=== PATIENT | male | born 1950 | race Caucasian/White ===

== ENCOUNTER 2019-01-08 11:43 | Emergency (ER) | payer MEDICARE ==
[~2019-01-08] VITALS: Ht 172.7 cm; Wt 72.6 kg
--- OUTSIDE RECORDS SUMMARY | 2019-01-08 11:45 | XMS REPORT | Continuity of Care Document ---
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 BACK PAIN, LUMBOSACRAL, BALANCE . Active 09/15/[address] [facility] Diabetes Resolved Problem 09/06/2018 [facility] Hypertension Resolved Problem 09/06/2018 [facility] Renal stone Resolved Problem 09/06/2018 [facility] Other microscopic hematuria 01/03/2019 [id number] Calculus of kidney 01/03/2019 [id number] Atherosclerotic heart disease of [place] coronary artery without angina pectoris 01/03/2019 [id number] Constipation, unspecified 01/03/2019 [id number] Diabetes mellitus (disorder) Resolved Problem 01/03/2019 [id number] Hypertensive disorder, systemic arterial (disorder) Resolved Problem 01/03/2019 [id number] Kidney stone (disorder) Resolved Problem 01/03/2019 [id number] CALCULUS OF KIDNEY Active [facility] Medications Medication Details Route Status Patient Instructions Ordering Provider Order Date Source tramadol hydrochloride 50 MG Oral Tablet 50 mg=1 tab, PO, Q12H, # 30 tab, 0 Refill(s), called to pharmacy Active 10/31/2017 [facility] tizanidine 4 mg oral tablet 4 mg=1 tab, PO, Q8H, PRN for muscle spasms, # 90 tab, 0 Refill(s), Pharmacy: [id number] Active 10/31/2017 [facility] Allergies, Adverse Reactions, Alerts Substance Category Reaction Severity Reaction type Status Date Reported Comments Source No Known Medication Allergies Assertion Drug allergy [id number] Immunizations No Data Provided for This Section Results No Data Provided for This Section Pathology Reports No Data Provided for This Section Diagnostic Reports Report Value Date Source Abdomen AP DX Abdomen AP DX 09/04/2018 8:33 CDT Ordering Physician: Christiano Goldberg MD CLINICAL INDICATION: - I10 Essential (primary) hypertension, E11.9 Type 2 diabetes mellitus without complications, N20.0 Calculus of kidney; COMPARISON: 07/31/2018 TECHNIQUE: Routine supine AP view of the abdomen was obtained. FINDINGS: Interval removal of the left double-J ureteral stent is noted. No stone is noted along the course of the ureter or within the region of the bladder. Couple of nonobstructive less than 5 mm left renal calculi are stable. Air and stool are visualized throughout the colon and rectum. No dilated loops of small bowel with air-fluid levels are present. No gross free air is present. No unexpected radiopaque foreign body is present. Bones are normal. IMPRESSION: Couple of stable nonobstructive left renal calculi, less than 5 mm. No ureteral or bladder stones identified. : [id number] 09/04/2018 [facility] Abdomen AP DX KUB: A left ureteral stent is seen in good position. The 1.8 cm calculus in the left renal pelvis seen on CT of 06/15/2018 is no longer visualized. There is an 8mm group of punctate calcifications in the lower pole of the left kidney consistent with stone fragments. There is a Steinstrasse of small stone fragments in the proximal left ureter adjacent to the stent. The abdominal gas pattern is normal. There are no significant osseous abnormalities. [id number] 07/31/2018 [facility] Abdomen/Pelvis wo IV contrast CT Patient Name: RAMON ZAMORA : 1950; Age: 68 years y/o Male MR: [id number] * I. COMPUTED TOMOGRAPHY SCAN OF THE ABDOMEN without contrast. * II. COMPUTED TOMOGRAPHY SCAN OF THE PELVIS without contrast. HISTORY: - R10.84 Generalized abdominal pain, left renal colic x few weeks, history of urinary tract calculi. COMPARISON: None * TECHNIQUE: I. COMPUTED TOMOGRAPHY SCAN OF THE ABDOMEN without contrast: Helical CT images were obtained on a multidetector computed tomography from the domes the diaphragms to the iliac crests. Neither oral or intravenous contrast was administered. II. COMPUTED TOMOGRAPHY SCAN OF THE PELVIS without contrast: Helical CT images were obtained on a multidetector computed tomography from the iliac crests to the pubic symphysis. Neither oral or intravenous contrast was administered. Coronal and sagittal reconstructions were obtained. CT imaging performed at this location utilizes radiation dose optimization techniques which include one or more of the following: -Automated exposure control. -Adjustment of the mA and/or kV according to patient size. -Use of iterative reconstruction technique. CT radiation dose DLP: 566 mGy-cm FINDINGS: Left kidney: There is a relatively large (18 x 16 x 7 mm) calculus within the left renal pelvis. This measures approximately 1000 Hounsfield units in density. 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 There is a 6 mm left upper pole renal calculus. There is a 3 mm left lower pole renal calculus. There are 2 or 3 tiny other calculi. There is no left hydronephrosis. The left kidney is normal in size. No focal lesion is seen involving the left kidney on this limited noncontrast study. Right kidney: No right-sided urinary tract calculi are seen. There is no hydronephrosis on the right. No focal lesions are seen involving the right kidney on this limited noncontrast study. The right kidney is normal in size. There is no evidence of an acute intra-abdominal process. There is no free intraperitoneal gas, intra-abdominal abscess, ascites, or other fluid collection. The liver, spleen, pancreas, and adrenal glands are normal in appearance. Evaluation of the solid organs is limited due to lack of intravenous contrast. There is mild constipation. Otherwise, the gastrointestinal structures are unremarkable. There is no evidence of obstruction or ileus. The appendix is visualized. There is no evidence of appendicitis. Evaluation of the gastrointestinal structures is limited due to lack of oral contrast. The gallbladder is visualized and grossly normal in appearance. There is no evidence of biliary ductal dilitation No mass or adenopathy is seen within the abdomen or pelvis. There is no ascites or other fluid collection. The abdominal aorta is normal in caliber. There are moderate atherosclerotic calcifications. The visualized lung bases are clear. There are no pleural effusions. The heart is normal in size. Moderate right coronary artery calcifications are noted. There is no pericardial effusion. There is degenerative facet disease on the left at L5-S1. It is noted the patient previously had CT and magnetic resonance imaging studies of the lumbar spine in 2018. Please refer to those reports. Otherwise, the osseous structures are unremarkable. No blastic or destructive lesions are seen. IMPRESSION: 1. Multiple left renal calculi as described above, the largest in the left renal pelvis measuring 18 x 16 x 7 mm. There is no hydronephrosis. 2. No right-sided urinary tract calculi. 3. Atherosclerosis including right coronary artery calcifications. 4. Mild constipation. SL: [id number] 06/15/[address] [facility] Spine lumbar wo contrast CT CT LUMBAR SPINE WITHOUT CONTRAST WITH SAGITTAL AND CORONAL REFORMATTED IMAGES HISTORY: Lumbar spondylosis; lumbar radiculopathy; 67-year-old male reports - LBP radiating to left leg x years, hx of surgery for sciatic nerve on SI area on right side in 2014; CT DLP 388.6 COMPARISON: MRI lumbar spine dated 09/26/2017 FINDINGS: There are 6 lumbar type vertebral bodies. Unchanged very mild chronic superior endplate compression deformity of the L1 vertebral body. No other fracture is seen. Remaining vertebral body heights are preserved. No endplate erosion or aggressive osseous lesion. No paraspinal soft tissue mass or fluid collection. Mild disc degeneration L4/L5 and L5/L6. Mild bilateral degenerative facet arthrosis at L4/L5 and L5/S1. Changes of prior posterior surgical decompression L5/L6. Mild/moderate aortoiliac atherosclerotic calcifications. No aneurysm of the visualized aorta. Relatively large calyceal calculus of the left kidney measures 2.1 x 0.8 x 1.5 cm. No left hydronephrosis. DISC SPACES: T12/L1: No canal stenosis or neural foraminal narrowing. L1/L2: No canal stenosis or neural foraminal narrowing. L2/L3: No canal stenosis or neural foraminal narrowing. L3/L4: No canal stenosis or neural foraminal narrowing. L4/L5: Mild diffuse disc bulge. Mild bilateral hypertrophic facet arthrosis. No canal stenosis. Mild bilateral neural foraminal narrowing. L5/L6: Changes of prior posterior surgical decompression. Mild broad-based posterior and bilateral foraminal disc protrusion with minimal endplate spurring. Mild bilateral hypertrophic facet arthrosis. No canal stenosis. Moderate bilateral neural foraminal narrowing. L6/S1: No canal stenosis or neural foraminal narrowing. IMPRESSION: 1. 6 lumbar type vertebra. 2. Mild degenerative disc disease and facet arthrosis in the lower lumbar spine. 3. Changes of prior posterior surgical decompression at L5/L6. 4. No lumbar canal stenosis. 5. Moderate bilateral neural foraminal narrowing L5/L6 and mild bilateral neural foraminal narrowing at L4/L5. 6. Relatively large 2.1 x 0.8 x 1.5 cm left renal calyceal calculus and mild/moderate aortoiliac atherosclerotic calcification. SL: [id number] 10/18/2017 [facility] lumbar wo contrast MRI EXAM: MRI LUMBAR SPINE WITHOUT CONTRAST DATE: 09/26/2017 10:08 AM CDT . ORDERING PHYSICIAN: Lavinia White MD CLINICAL INDICATION: M54.5 Low back pain - M54.5 Low back pain; TECHNIQUE: Multiplanar, multisequence MRI lumbar spine without IV contrast COMPARISON: Unavailable FINDINGS: For the purposes of enumeration, the lowest well formed intervertebral disc was counted as L5-S1 on this exam. INTRASPINAL CONTENTS/CONUS: The conus terminates at L1-L2. No definite dural based lesion. VERTEBRAE: The vertebrae are normal in height and alignment. No focal suspicious bone marrow signal abnormality. PARASPINAL SOFT TISSUES: No edema or definite masses. No aortic aneurysm. DISC SPACES, SPINAL CANAL, AND NEURAL FORAMINA: T12-L1. Intervertebral disc height and signal are maintained. Posterior elements are normal. There is no stenosis. L1-L2. Intervertebral disc height and signal are maintained. Posterior elements are normal. There is no stenosis. L2-L3. Intervertebral disc height and signal are maintained. Posterior elements are normal. There is no stenosis. L3-L4. Loss of disc height with diffuse disc bulge. There is mild bilateral facet hypertrophy. Central canal measures 12 mm. Lateral recesses are narrowed with disc and facets contacting the descending L4 nerve roots. Foraminal disc bulge mildly narrows the neural foramina with no contact of the exiting L3 nerve roots. L4-L5. Dehydrated disc with small diffuse disc bulge. There is left greater than right facet hypertrophy. Patient status post right laminectomy. Central canal measures 17 mm lateral recesses are patent. There is moderate narrowing of the neural foramina with disc and facets contacting both exiting L4 nerve roots, left greater than right. L5-S1. Intervertebral disc height and signal are maintained. Posterior elements are normal. There is no stenosis. IMPRESSION: 1. No central canal stenosis 2. Moderate L4-L5 neural foramen narrowing, left greater than right 3. Satisfactory L4-L5 posterior decompression 09/26/2017 S[facility]IE Ramirez Consultation Notes No Data Provided for This Section Discharge Summaries No Data Provided for This Section History and Physicals No Data Provided for This Section Vital Signs Vital Sign Value Date Comments Source Height 172.72 cm 09/04/2018 [facility] Weight 74.091 09/04/2018 [facility] BMI Calculated 24.84 09/04/2018 [facility] BMI Calculated 24.84 11/02/2017 [facility] Weight 74.091 11/02/2017 [facility] Height 172.72 cm 11/02/2017 [facility] Heart Rate 71 11/02/2017 [facility] Systolic (mm Hg) 95 [facility]/02[facility] Diastolic (mm Hg) 58 11/02/2017 [facility] Weight 73.807 10/11/2017 [facility] BMI Calculated 24.74 10/11/2017 [facility] Height 172.72 cm 10/11/2017 [facility] Encounters Location Location Details Encounter Type Encounter Number Reason For Visit Attending Provider ADM Date DC Date Status Source [facility] Out[facility] - [facility] [id number] Lavinia White 09/26/2017 09/27/2017 SADIE Ramirez [facility] Neurosurgery [facility] Phone Message [id number] 10/05/2017 10/07/2017 [facility] Outpatient [id number] GIOVANNY YOUNGH 10/11/2017 Active [facility] [id number] Giovanny Marilou 10/11/2017 10/12/2017 [facility] Phone Message [id number] 10/18/2017 10/20/2017 [facility] Phone Message [id number] 10/18/2017 10/20/2017 [facility] Outpatient [id number] FLORENTIN AYALA 10/31/2017 [facility] Outpatient [id number] Florentin Ayala 10/31/2017 11/01/2017 [facility] Phone Message [id number] 11/10/2017 11/12/2017 [facility] Outpatient [id number] FLORENTIN AYALA 11/17/[address] [facility] Ambulatory Pre-Reg [id number] Florentin Ayala 11/17/2017 11/17/2017 [facility] Phone Message [id number] 12/19/2017 12/21/2017 [facility] Outpatient [id number] [facility] 12/20/[address] [facility] Ambulatory Pre-Reg [id number] Jasmyne Olayinkatyree 12/20/2017 12/20/2017 [facility] Outpatient [facility] Services [id number] [facility] 06/15/2018 06/16/2018 [id number] Outpatient [id number] [facility] 07/12/[address] [facility] Outpatient [id number] NURSE VISIT 07/17/[address] [facility] Outpatient [id number] NURSE VISIT 07/17/[address] [id number] [facility]31[facility]2018 08/01/2018 [facility] Outpatient [id number] [facility] Goldberg 08/07/[address] [facility] Outpatient [id number] -[place] 08/08/[address] [facility] Outpatient [id number] -[place] 08/28/[address] [id number] [facility]2018 [facility] [id number] [facility] 09/04/2018 09/05/2018 [facility] [place] Outpatient [id number] Christiano Goldberg 09/04/2018 09/05/2018 [facility] Outpatient [id number] -[place] 02/26/[address] [facility] Outpatient [id number] Christiano Goldberg 03/05/[address] [facility] Procedures Procedure Code Date Perfomer Comments Source Eye operation [id number] [facility],[id number],[facility] Knee joint operation [id number] [facility],[id number],[facility] Neck procedure [id number] [facility],[id number],[facility] Spinal operation [id number] [facility],[id number],[facility] Assessment and Plan No Data Provided for This Section Plan of Care No Data Provided for This Section Social History Social History Date Source Social History TypeResponse Smoking Status Never smoker; Exposure to Tobacco Smoke None; Cigarette Smoking Last 365 Days No; Reg Smoking Cessation Counseling No entered on: 09/04/18 09/04/2018 [facility] Social History TypeResponse Smoking Status Never smoker; Exposure to Tobacco Smoke None; Cigarette Smoking Last 365 Days No; Reg Smoking Cessation Counseling No entered on: 09/04/18 09/04/2018 [facility] Social History TypeResponse Smoking Status Never smoker; Exposure to Tobacco Smoke None; Cigarette Smoking Last 365 Days No; Reg Smoking Cessation Counseling No entered on: 09/04/18 09/04/2018 [id number] Social History TypeResponse Smoking Status Never smoker; Exposure to Tobacco Smoke None; Cigarette Smoking Last 365 Days No; Reg Smoking Cessation Counseling No entered on: 11/02/17 11/02/2017 [facility] No data available for this section 09/27/2017 SADIE Ramirez Family History No Data Provided for This Section Advance Directives No Data Provided for This Section Functional Status No Data Provided for This Section
--- OUTSIDE RECORDS SUMMARY | 2019-01-08 11:45 | XMS REPORT | Clinical Summary ---
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 Active glipiZIDE (GLUCOTROL) 10 Take 10 mg by 0 MG tablet mouth 2 (two) times a day before meals. Active hydroCHLOROthiazide Take 25 mg by 0 (HYDRODIURIL) 25 MG mouth daily. tablet Active metFORMIN (GLUCOPHAGE) Take 1,000 mg 0 1,000 mg tablet by mouth 2 (two) times a day with meals. Active omeprazole (PriLOSEC) 20 Take 20 mg by 0 MG capsule mouth 2 (two) times a day. Active simvastatin (ZOCOR) 40 MG Take 40 mg by 0 tablet mouth nightly. Active terazosin (HYTRIN) 5 MG Take 5 mg by 0 capsule mouth nightly. Active aspirin (ECOTRIN) 81 MG Take by 0 enteric coated tablet mouth. Active lisinopril Take 5 mg by 0 (PRINIVIL,ZESTRIL) 5 mg mouth daily. tablet Active diclofenac (VOLTAREN) 1 % Apply 1 Tube 0 gel topically 4 9 (four) times a day. 1-2 times weeks for 6-8 weeks // Patellar tendinitis and LBP Active sucralfate (CARAFATE) 1 TK 1 T BID 0 gram tablet 9 01/17/2019 Active cyclobenzaprine Take 1 tablet 90 tablet 0 (FLEXERIL) 5 mg tablet (5 mg total) 9 by mouth 3 (three) times a day as needed for muscle spasms for up to 30 days. 12/29/2019 Active acetaminophen-codeine Take 1 tablet 50 tablet 0 (TYLENOL WITH CODEINE #3) by mouth 9 300-30 mg per tablet every 4 (four) hours as needed for moderate pain. 01/27/2018 traMADol (ULTRAM) 50 mg Take 1 tablet 60 tablet 0 tablet (50 mg total) 8 by mouth every 6 (six) hours as needed for moderate pain for up to 30 days. 02/02/2018 cyclobenzaprine Take 1 tablet 30 tablet 0 (FLEXERIL) 5 mg tablet (5 mg total) 8 by mouth 2 (two) times a day as needed for muscle spasms for up to 30 days. 02/26/2018 methylPREDNISolone Take 1 tablet 21 tablet 0 (MEDROL DOSEPAK) 4 mg (4 mg total) 8 tablet by mouth See Admin Instructions for 5 days. Use as directed by package instructions 08/10/2018 ibuprofen (ADVIL,MOTRIN) Take 1 tablet 90 tablet 0 800 MG tablet (800 mg 9 total) by mouth 3 (three) times a day as needed for mild pain for up to 30 days. 08/01/2018 HYDROcodone-acetaminophen Take 1 tablet 10 tablet 0 (NORCO) 10-325 mg per by mouth 9 tablet every 6 (six) hours as needed for moderate pain for up to 2 days. Max Daily Amount: 4 tablets 10/26/2018 ibuprofen (ADVIL,MOTRIN) Take 1 tablet 90 tablet 0 800 MG tablet (800 mg 9 total) by mouth every 8 (eight) hours as needed for moderate pain for up to 30 days. 12/25/2018 traMADol (ULTRAM) 50 mg Take 1 tablet 30 tablet 0 tablet (50 mg total) 9 by mouth every 8 (eight) hours as needed for moderate pain or severe pain for up to 10 days. Status Hospital, Clinic, or Ordered Dose Route Frequency Start End Date Other Facility Date Administered Medication Discontinued methylPREDNISolone 40 mg IM once 01/04/20 acetate (DEPO-MEDROL) 18 9 injection 40 mgIndications: Biceps tendinitis of right upper extremity, Calcific tendinitis of right shoulder Discontinued bupivacaine (MARCAINE) 5 mg inj once 01/04/20 0.5 % (5 mg/mL) injection 18 9 5 mgIndications: Biceps tendinitis of right upper extremity, Calcific tendinitis of right shoulder Active Problems Problem Noted Date Dizziness 12/18/2018 Muscle tightness 12/18/2018 Bilateral sciatica 10/04/2018 Patellar tendinitis of both knees 07/11/2018 Biceps tendinitis of right upper extremity 12/30/2017 Acute pain of right shoulder 12/30/2017 Calcific tendinitis of right shoulder 12/30/2017 Generalized weakness 11/30/2017 Low back pain 11/30/2017 TIA (transient ischemic attack) 11/30/2017 Encounters Care Team Description Date Type Specialty Jazmyne Sheehan MA 12/29/2018 Telephone Sports Medicine Shine Mabry MD Contusion of right knee, initial encounter (Primary Dx); Hip sprain, right, initial encounter 12/28/2018 Office Visit Sports Medicine Shine Mabry MD Contusion of right knee, initial encounter (Primary Dx); Hip sprain, right, initial encounter; Strain of lumbar region, initial encounter; Sprain of sacroiliac joint, initial encounter 12/18/2018 Office Visit Sports Medicine Subha Lundberg MD Dizziness (Primary Dx); Muscle tightness; Generalized weakness 12/18/2018 Office Visit Neurology Fernando Singh MA 12/18/2018 Telephone Orthopedic Surgery Fernando Singh MA 12/15/2018 Telephone Orthopedic Surgery Fernando Singh MA 12/15/2018 Orders Only Orthopedic Surgery Barrett Umaña Jr., MD Bilateral sciatica (Primary Dx); Patellar tendinitis of both knees 09/26/2018 Office Visit Orthopedic Surgery Barrett Umaña Jr., MD 08/22/2018 Telephone Orthopedic Surgery Barrett Umaña Jr., MD Patellar tendinitis of both knees (Primary Dx) 08/15/2018 Office Visit Orthopedic Surgery Mayank Badillo DO Acute left flank pain (Primary Dx) 07/30/2018 Emergency Emergency Medicine 07/30/2018 Travel Barrett Umaña Jr., MD Patellar tendinitis of both knees (Primary Dx); Low back pain, unspecified back pain laterality, unspecified chronicity, with sciatica presence unspecified 07/11/2018 Office Visit Orthopedic Surgery Fernando Singh MA Pain in both knees, unspecified chronicity (Primary Dx) 07/07/2018 Orders Only Sports Medicine Barrett Umaña Jr., MD Calcific tendinitis of right shoulder (Primary Dx); Biceps tendinitis of right upper extremity 02/21/2018 Office Visit Orthopedic Surgery Barrett Umaña Jr., MD Calcific tendinitis of right shoulder (Primary Dx); Right shoulder pain, unspecified chronicity 02/13/2018 Transcribe Physical Therapy Orders after 01/07/2018 Family History Medical History Relation Name Comments Stroke Mother Relation Name Status Comments Father Mother Social History Date Tobacco Use Types Packs/Day Years Used Never Smoker Smokeless Tobacco: Never Used Drinks/Week oz/Week Comments Alcohol Use No Sex Assigned at Date Recorded Not on file Industry Job Start Date Occupation Not on file Not on file Not on file Travel End Travel History Travel Start No recent travel history available. Last Filed Vital Signs Reading Time Taken Comments Vital Sign 161/79 12/28/2018 3:05 PM CDT Blood Pressure 91 12/28/2018 3:05 PM CDT Pulse 37.1 C (98.7 F) 07/30/2018 12:52 PM CDT Temperature 16 07/30/2018 4:30 PM CDT Respiratory Rate 96% 07/30/2018 5:00 PM CDT Oxygen Saturation - - Inhaled Oxygen Concentration 72.6 kg (160 lb) 12/28/2018 3:05 PM CDT Weight 172.7 cm (5' 8") 12/28/2018 3:05 PM CDT Height 24.33 12/28/2018 3:05 PM CDT Body Mass Index Plan of Treatment Care Team Description Date Type Specialty Shine Mabry MD [address] [address] [phone] Leonela Pasrtana, PT 01/09/2019 Office Visit Physical Therapy Shine Mabry MD [address] [address] [phone] Samantha Awan, PT 01/11/2019 Office Visit Physical Therapy Shine Mabry MD [address] [address] [phone] Ashley Alvarez 01/16/2019 Office Visit Physical Therapy Shine Mabry MD [address] [address] [phone] Samantha Awan, PT 01/18/2019 Office Visit Physical Therapy Shine Mabry MD [address] [address] [phone] Ashley Alvarez 01/23/2019 Office Visit Physical Therapy Shine Mabry MD [address] [address] [phone] Ashley Alvarez 01/25/2019 Office Visit Physical Therapy Shine Mabry MD [address] [address] [phone] Ashley Alvarez 01/30/2019 Office Visit Physical Therapy Shine Mabry MD [address] [address] [phone] Samantha Awan, PT 02/01/2019 Office Visit Physical Therapy Shine Mabry MD [address] [address] [phone] Ashley Alvarez 02/06/2019 Office Visit Physical Therapy Shine Mabry MD [address] [address] [phone] Samantha Awan, PT 02/08/2019 Office Visit Physical Therapy Shine Mabry MD [address] [address] [phone] 02/08/2019 Office Visit Sports Medicine Shine Mabry MD [address] [address] [phone] Ashley Alvarez 02/13/2019 Office Visit Physical Therapy Shine Mabry MD [address] [address] [phone] Ashley Alvarez 02/15/2019 Office Visit Physical Therapy Shine Mabry MD [address] [address] [phone] Samantha Awan, PT 02/20/2019 Office Visit Physical Therapy Shine Mabry MD [address] [address] [phone] Ashley Alvarez 02/22/2019 Office Visit Physical Therapy Health Maintenance Due Date Last Done Comments COLONOSCOPY SCREENING 1998 SHINGLES VACCINES (#1) 1998 65+ PNEUMOCOCCAL VACCINE 2013 (1 of 2 - PCV13) INFLUENZA VACCINE 12/07/2018 Procedures Comments Procedure Name Priority Date/Time Associated Diagnosis XR HIP 2-3 VIEWS RIGHT Routine 12/18/2018 Sprain of right knee, 2:08 PM CDT unspecified ligament, initial encounter XR KNEE 4+ VW RIGHT Routine 12/18/2018 Sprain of right knee, 2:08 PM CDT unspecified ligament, initial encounter [place] INJECT TRIGGER POINT, Routine 09/26/2018 Bilateral sciatica 1 OR 2 9:30 AM CDT Patellar tendinitis of both knees PARTIAL THROMBOPLASTIN STAT 07/30/2018 TIME (PTT) 4:05 PM CDT PROTHROMBIN TIME WITH INR STAT 07/30/2018 4:[address] ABDOMEN PELVIS WO STAT 07/30/2018 CONTRAST 4:00 PM CDT GRAM STAIN STAT 07/30/2018 3:27 PM CDT URINE CULTURE STAT 07/30/2018 3:27 PM CDT URINALYSIS SCREEN AND STAT 07/30/2018 MICROSCOPY, WITH REFLEX 2:39 PM CDT TO CULTURE ESTIMATED GFR STAT 07/30/2018 2:35 PM CDT COMPREHENSIVE METABOLIC STAT 07/30/2018 PANEL 2:35 PM CDT XR KNEE 3 VW BILATERAL Routine 07/11/2018 Pain in both knees, 9:41 AM REAR ADMIRAL unspecified chronicity after 01/07/2018 Results * XR Hip 2-3 View Right (12/18/2018 2:08 PM CDT) Specimen Narrative Performed At [facility] No obvious fractures or dislocations Performing Organization Address [facility] Phone Number [facility] [address] [place] [address] * XR Knee 4+ Vw Right (12/18/2018 2:08 PM CDT) Specimen Narrative Performed At [facility] Distal femoral and proximal tibial screws intact with no evidence of loosening or simon-prosthetic fractures.Moderate medial and patellofemoral compartment joint space narrowing.No obvious fractures or dislocations Performing Organization Address [facility] Phone Number [facility] [address] [place] [address] * 1 or 2 Trigger Point Injection (09/26/2018 9:30 AM CDT) Narrative Performed At Barrett Umaña Jr., MD 10/04/20187:56 PM 1 or 2 Trigger Point Injection Date/Time: 10/04/2018 7:51 PM Performed by: Barrett Umaña Jr., MD Authorized by: Barrett Umaña Jr., MD Consent: Consent obtained:Verbal Consent given by:Patient Risks discussed:Allergic reaction and bleeding Alternatives discussed:No treatment Indications: Indications:Pain relief Location: Therapeutic Trigger Point Injection:Single/multiple trigger point(s): 1-2 muscle groups Location: gluteal Gluteal location injected:R gluteal Right side: Right Gluteal Medications administered: 80 mg methylPREDNISolone acetate 40 mg/mL Pre-procedure details: Neurovascular status: intact Skin preparation:2% chlorhexidine Procedure details: Topical anesthetic:EMLA cream Syringe type:Controlled syringe Post-procedure details: Patient tolerance of procedure:Tolerated well, no immediate complications * Partial thromboplastin time, activated (07/30/2018 4:05 PM CDT) Pathologist [facility] PTT 35.8 23.0 - 36.0 sec [facility] Comment: [facility] PTT therapeutic range for [facility] unfractionated heparin is 61.0-112.0 seconds which corresponds to Anti-Xa 0.3-0.7 U/ml. Specimen Blood Performing Organization Address [facility] Phone Number [address] AND [address] * Prothrombin time with INR (07/30/2018 4:05 PM CDT) Pathologist [facility] Prothrombin 12.8 11.5 - 14.5 sec [facility] INR 1.0 [facility] Comment: [facility] The International Normalized [facility] Ratio (INR) is a therapeutic monitoring tool for patients who are stable on oral anticoagulant therapy. An INR of 2.0-3.0 is suggested for deep vein thrombosis/pulmonary embolism. Specimen Blood Performing Organization Address [facility] Phone Number [address] * CT Abdomen Pelvis Wo Contrast (07/30/2018 4:00 PM CDT) Specimen Narrative Performed At EXAMINATION:CT ABDOMEN PELVIS WO CONTRAST [facility] CLINICAL HISTORY:left flank pain post recent ureteral stent placement at [facility] TECHNIQUE:Multiple axial images of the abdomen and pelvis were obtained without intravenous administration of iodinated contrast. Sagittal and coronal computerized reformatted images were also obtained. The lack of intravenous contrast reduces the sensitivity of detecting solid organ disease. CT imaging was performed with iterative reconstruction techniques and/or automated exposure control to reduce radiation dose. COMPARISON:None. IMPRESSION: Abdomen: 1. No parenchymal abnormality is noted in the lung bases. 2.Liver and the spleen are normal in appearance. 3.Pancreas and adrenal glands are normal in appearance. 4.The right kidney is normal in appearance. Small calculi are noted involving the left kidney and there is a left-sided internal ureteral stent present. Pelvis: 1. Minimal presacral infiltration is present. There is no evidence pelvic mass, or fluid collection. 2.No bowel distention is appreciated. No bony abnormality is appreciated. [facility]-[id number] Procedure Note Interface, Radiology Results Incoming - 07/30/2018 4:11 PM CDT EXAMINATION: CT ABDOMEN PELVIS WO CONTRAST CLINICAL HISTORY: left flank pain post recent ureteral stent placement at [facility] TECHNIQUE: Multiple axial images of the abdomen and pelvis were obtained without intravenous administration of iodinated contrast. Sagittal and coronal computerized reformatted images were also obtained. The lack of intravenous contrast reduces the sensitivity of detecting solid organ disease. CT imaging was performed with iterative reconstruction techniques and/or automated exposure control to reduce radiation dose. COMPARISON: None. IMPRESSION: Abdomen: 1. No parenchymal abnormality is noted in the lung bases. 2. Liver and the spleen are normal in appearance. 3. Pancreas and adrenal glands are normal in appearance. 4. The right kidney is normal in appearance. Small calculi are noted involving the left kidney and there is a left-sided internal ureteral stent present. Pelvis: 1. Minimal presacral infiltration is present. There is no evidence pelvic mass, or fluid collection. 2. No bowel distention is appreciated. No bony abnormality is appreciated. [facility]-[id number] Performing Organization Address City/[facility]/Zipcode Phone Number [facility] [address] [place] [address] * Gram stain (07/30/2018 3:27 PM CDT) Gram stain Rare WBC's [facility] result No organisms seen [facility]I Comment: HOSPITAL Specimen Information Specimen Source: Urine Specimen Site: Clean catch Specimen Urine Performing Organization Address City/[facility]/Zipcode Phone Number [facility] DEPARTMENT OF [address] [place] [address] PATHOLOGY AND GENOMIC MEDICINE [facility] [address] [place] [address] HOSPITAL * Urine culture (07/30/2018 3:27 PM CDT) Urine culture growth after 24 hours [facility] isolate Comment: [facility] Specimen Information HOSPITAL Specimen Source: Urine Specimen Site: Clean catch Specimen Urine Performing Organization Address City/[facility]/Zipcode Phone Number [facility] DEPARTMENT OF [address] [place] [address] PATHOLOGY AND GENOMIC MEDICINE [facility] [address] [place], [place] [id number] [place] [address] * Urinalysis screen and microscopy, with reflex to culture (07/30/2018 2:39 PM CDT) Specimen site Clean catch [facility] Color, UA Yellow [facility] Appearance, UA Cloudy [facility] Specific 1.026 1.001 - 1.035 [facility] gravity, UA [facility] pH, UA 5.0 5.0 - 8.5 [facility] Protein, UA 2+ (A) Negative [facility] Glucose, UA 3+ (A) Negative [facility] Ketones, UA Negative Negative [facility] Bilirubin, UA Negative Negative [facility] Blood, UA Large (A) Negative [facility] Nitrite, UA Negative Negative [facility] Urobilinogen, Negative <2.0 [facility] Leukocyte Small (A) Negative [facility] esterase, [facility] WBC, UA 61-80 (H) 0 - 1 /HPF [facility] RBC, UA 61-80 (H) 0 - 5 /HPF [facility] Bacteria, UA Trace None seen [facility] Yeast, UA None seen [facility] Yeast with None seen [facility] Spec[facility] Urine Performing Organization Address City/[facility]/Zipcode Phone Number [facility] [id number] [place] [address] [place] [address] PATHOLOGY AND GENOMIC MEDICINE [address] [place] [address] [facility] * Estimated GFR (07/30/2018 2:35 PM CDT) Pathologist [facility] Estimated GFR 86 mL/min/1.73 m2 [facility] Comment: [facility] rpretation G1 >=90 Normal or high G2 60-89Mildly decreased [id number] Mildly to moderately decreased [id number] Moderately to severely decreased G4 15-29Severely decreased G5 <15Kidney failure The eGFR was calculated using the Chronic Kidney Disease Epidemiology Collaboration (CKD-EPI) equation. Interpretation is based on recommendations of the National Kidney Foundation-Kidney Disease Outcomes Quality Initiative (NKF-KDOQI) published in 2014. Specimen Plasma specimen Performing Organization Address City/State/Zipcode [place] [address] [place] [address] PATHOLOGY AND GENOMIC MEDICINE [facility] [address] [place] [address] [facility] * Comprehensive metabolic panel (07/30/2018 2:35 PM CDT) Sodium 138 135 - 148 mEq/L [facility] Potassium 4.7 3.5 - 5.0 mEq/L [facility] Chloride 98 98 - 112 mEq/L [facility] CO2 27 24 - 31 mEq/L [facility] Anion gap 13@ANIO 7 - 15 mEq/L [facility] BUN 17 8 - 23 mg/dL [facility] Creatinine 0.90 0.70 - 1.20 mg/dL [facility] Glucose 185 (H) 65 - 99 mg/dL [facility] Calcium 10.2 8.8 - 10.2 mg/dL [facility] Protein 7.3 6.3 - 8.3 g/dL [facility] Comment: [facility] 4.6-7.0 g/dL 1 week 4.4-7.6 g/dL 7 months-1year 5.1-7.3 g/dL 1-2 years5.6-7 .5 g/dL >3 years6.0-8 .0 g/dL 18-150 6.3-8.3 g/dL Albumin 4.0 3.5 - 5.0 g/dL [facility] A/G ratio 1.2 0.7 - 3.8 [facility] Alkaline 57 40 - 129 U/L [facility] phosphatase [facility] AST 32 10 - 50 U/L [facility] ALT 19 5 - 50 U/L [facility] Total bilirubin 0.7 0.0 - 1.2 mg/dL [facility] Specimen Plasma specimen Performing Organization Address City/State/Zipcode Phone Number [place] [address] [place] [address] PATHOLOGY AND GENOMIC MEDICINE [facility] [address] [place] [address] [facility] * XR Knee 3 Vw Bilateral (07/11/2018 9:41 AM REAR ADMIRAL) Specimen Impressions Performed At tibial tubercle calcification-juliann schlatter type [facility] bilaterally.Mild OA otherwise Narrative Performed At [facility] Findings: Multiple views of the right and left knees demonstrate no fracture, chondrocalcinosis or effusion.Mild to moderate medial oa. Calcification noted at the tibial tubercle. 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
--- OUTSIDE RECORDS SUMMARY | 2019-01-08 11:46 | XMS REPORT ---
Author Author [facility] Address Unknown Phone Unavailable Care Team Providers Care Deboner Name Role Phone Unavailable Unavailable Problems This patient has no known problems. Allergies, Adverse Reactions, Alerts This patient has no known allergies or adverse reactions. Medications This patient has no known medications. Encounters Start Date/Time End Date/Time Encounter Type Admission Type Attending Clinicians Care Facility Care Department Encounter ID 2018-09-04 08:20:00 2018-09-04 08:20:00 Outpatient [id number]
--- OUTSIDE RECORDS SUMMARY | 2019-01-08 11:46 | XMS REPORT | Summary of Care ---
Author Author [facility] Organization [facility] Address Unknown Phone Unavailable Encounter HQ Jesikar_janak(FIN) [id number] Date(s): 10/11/17 - 10/11/17 [facility] [address] [facility], [address] [place] [phone] Discharge Disposition: Home or Self Care Attending Physician: Giovanny Zamarripa MD Referring Physician: Lavinia White MD Vital Signs Most recent to 1 oldest [Reference Range]: Height 172.72 cm (10/11/17 4:41 PM) Weight 73.807 kg (10/11/17 4:41 PM) Body Mass Index 24.74 m2 (10/11/17 4:41 PM) Problem List No data available for this section Allergies, Adverse Reactions, Alerts Substance Reaction Severity Status NKDA Active Medications No data available for this section Results No data available for this section Immunizations No data available for this section Procedures No data available for this section Social History Social History Type Response Smoking Status Never smoker; Exposure to Tobacco Smoke None; Cigarette Smoking Last 365 Days No; Reg Smoking Cessation Counseling No entered on: 10/11/17 Assessment and Plan No data available for this section
--- OUTSIDE RECORDS SUMMARY | 2019-01-08 11:46 | XMS REPORT | Summary of Care ---
Author Author [facility] Organization [facility] Address Unknown Phone Unavailable Encounter HQ Encntr_alias(FIN) [id number] Date(s): 11/10/17 - 11/11/17 [facility] [address] [phone] Vital Signs No data available for this section Problem List No data available for this section Allergies, Adverse Reactions, Alerts Substance Reaction Severity Status NKDA Active Medications No data available for this section Results No data available for this section Immunizations No data available for this section Procedures Procedure Date Related Diagnosis Body Site Status Eye operation Completed Knee joint operation Completed Neck procedure Completed Spinal operation Completed Social History Social History Type Response Smoking Status Never smoker; Exposure to Tobacco Smoke None; Cigarette Smoking Last 365 Days No; Reg Smoking Cessation Counseling No entered on: 11/02/17 Assessment and Plan No data available for this section
--- OUTSIDE RECORDS SUMMARY | 2019-01-08 11:46 | XMS REPORT | Summary of Care ---
Author Author [facility] Organization [facility] Address Unknown Phone Unavailable Encounter HQ Encntr_alias(FIN) [id number] Date(s): 10/05/17 - 10/06/17 [facility] [address] [facility], [address] [phone] Vital Signs No data available for this section Problem List No data available for this section Allergies, Adverse Reactions, Alerts No data available for this section Medications No data available for this section Results No data available for this section Immunizations No data available for this section Procedures No data available for this section Social History No data available for this section Assessment and Plan No data available for this section
--- OUTSIDE RECORDS SUMMARY | 2019-01-08 11:46 | XMS REPORT | Summary of Care ---
Author Author [facility] Organization [facility] Address Unknown Phone Unavailable Encounter HQ Encntr_alias(FIN) [id number] Date(s): 12/19/17 - 12/20/17 [facility] [address] [facility], [address] [place] [phone] Vital Signs No data available for this [...]
--- OUTSIDE RECORDS SUMMARY | 2019-01-08 11:46 | XMS REPORT | Summary of Care ---
Author Author [facility] Organization [facility] Address Unknown Phone Unavailable Encounter HQ Vanesa(FIN) [phone] Date(s): 10/31/17 - 10/31/17 [facility] [address] [facility], [address] [place], [place] [address] [phone] Discharge Disposition: Home or Self Care Attending Physician: Yanira Ayala MD Referring Physician: Lavinia White MD Vital Signs Most recent to 1 oldest [Reference Range]: Height 172.72 cm (11/02/17 6:53 PM) Blood Pressure 95/58 mmHg [90-140/60-90 mmHg] (11/02/17 6:53 PM) Peripheral Pulse 71 bpm Rate [60-100 bpm] (11/02/17 6:53 PM) Weight 74.091 kg (11/02/17 6:53 PM) Body Mass Index 24.84 m2 (11/02/17 6:53 PM) Problem List No data available for this section Allergies, Adverse Reactions, Alerts Substance Reaction Severity Status NKDA Active Medications tizanidine 4 mg oral tablet 4 mg=1 tab, PO, Q8H, PRN for muscle spasms, # 90 tab, 0 Refill(s), Pharmacy: [facility] [id number] Start Date: 10/31/17 Status: Ordered tramadol 50 mg oral tablet 50 mg=1 tab, PO, Q12H, # 30 tab, 0 Refill(s), called to pharmacy Start Date: 10/31/17 Status: Ordered Results No data available for this section [...]
--- OUTSIDE RECORDS SUMMARY | 2019-01-08 11:46 | XMS REPORT | Summary of Care ---
Author Author [facility] Organization [facility] Address Unknown Phone Unavailable Encounter HQ Encntr_alias(FIN) [id number] Date(s): 11/17/17 - 11/17/17 [facility] [address] [facility], [address] [phone] Attending Physician: Yanira Ayala MD Referring Physician: Lavinia White MD Vital Signs No data available for this [...]
--- OUTSIDE RECORDS SUMMARY | 2019-01-08 11:46 | XMS REPORT | Summary of Care ---
Author Author [facility] Organization [facility] Address Unknown Phone Unavailable Encounter HQ Encntr_alias(FIN) [id number] Date(s): 10/18/17 - 10/19/17 [facility]surgery [facility] [address] [address] [facility], [address] [place] [address] [phone] Vital Signs No data available for this [...]
--- OUTSIDE RECORDS SUMMARY | 2019-01-08 11:46 | XMS REPORT | Summary of Care ---
Author Author [facility] [place] Organization [facility] [place] Address Unknown Phone Unavailable Care Team Providers Care Material Expeditor Name Role Phone Laviina White PCP Encounter HQ Betty_janak(FIN) [id number] Date(s): 06/15/18 - 06/15/18 [facility] Outpatient [facility] Encounter Diagnosis Generalized abdominal pain (Final) - 06/20/18 Other microscopic hematuria (Final) - Calculus of kidney (Final) - Atherosclerotic heart disease of [place] coronary artery without angina pectoris (Final) - Constipation, unspecified (Final) - Discharge Disposition: Home or Self Care Attending Physician: Lavinia White MD Referring Physician: Lavinia White MD Vital Signs No data available for this section Problem List Condition Effective Dates Status Health Status Informant Diabetes(Confirmed) Resolved Hypertension(Confirm Resolved ed) Renal Resolved stone(Confirmed) Allergies, Adverse Reactions, Alerts No Known Medication Allergies Medications No data available for this section [...] Smoking Cessation Counseling No entered on: 09/04/18 Assessment and Plan No data available for this section
--- OUTSIDE RECORDS SUMMARY | 2019-01-08 11:46 | XMS REPORT | Summary of Care ---
Author Author [facility] Neurosurgery [facility] Organization [facility] Neurosurgery [facility] Address Unknown Phone Unavailable Encounter HQ Encntr_alias(FIN) [id number] Date(s): 10/18/17 - 10/19/17 [facility] Neurosurgery [facility] [address] [facility], [address] [place] [phone] Vital Signs No data available [...]
--- OUTSIDE RECORDS SUMMARY | 2019-01-08 11:46 | XMS REPORT | Summary of Care ---
Author Author [facility] Organization [facility] Address Unknown Phone Unavailable Care Team Providers Care Commercial Collector Name Role Phone Lavinia White PCP Encounter HQ Encntr_janak(FIN) [id number] Date(s): 09/04/18 - 09/04/18 [facility] [address] [place] [address]- Discharge Disposition: Home or Self Care Attending Physician: Christiano Boswell MD Admitting Physician: Christiano Boswell MD Vital Signs No data available for [...]
--- OUTSIDE RECORDS SUMMARY | 2019-01-08 11:46 | XMS REPORT | Summary of Care ---
Author Author ANTHONY Boland, ALEX Organization Unknown Address Unknown Phone Unavailable Care Team Providers Care Geography Faculty Member Name Role Phone JIGAR Boland, JONATAN Unavailable Unavailable Lars Del Toro, Radha Unavailable Unavailable ANTHONY Boland, ALEX Unavailable Unavailable JONATAN KIMBALL MD Unavailable Unavailable ANTHONY HERNANDEZ CT, ALEX Unavailable Unavailable PHILLIP Boland, ANTONIO Unavailable Unavailable Unavailable Unavailable Functional Status Name Dates Details Functional status health issues are not documented Status: Name Dates Details Cognitive status health issues are not documented Status: Problems Name Dates Details Recurrent kidney stones (592.0, N20.0) Status: Active Transient cerebral ischemia, unspecified type (435.9, G45.9) Status: Active History of Lumbar vertebral fusion Status: Resolved Benign prostatic hyperplasia without urinary obstruction (600.00, N40.0) Status: Active Depression screen (V79.0, Z13.31) Status: Active Advance directive discussed with patient (V65.49, Z71.89) Status: Active BMI (body mass index) 20.0-29.9 Status: Active Risk for falls (V15.88, Z91.81) Status: Active Need for shingles vaccine (V04.89, Z23) Status: Active Balance problem (781.99, R26.89) Status: Active History of Neck surgery Status: Resolved Abnormal MRI, lumbar spine (793.7, R93.7) Status: Active Back pain, lumbosacral (724.2, M54.5) Status: Active Abdominal pain, colicky (789.00, R10.84) Status: Active Hematuria, microscopic (599.72, R31.29) Status: Active Renal stones (592.0, N20.0) Status: Active Diabetes mellitus (250.00, E11.9) Status: Active Renal colic (788.0, N23) Status: Active History of Stroke, lacunar (434.91, I63.81) Status: Resolved Renal insufficiency (593.9, N28.9) Status: Active Anemia, unspecified type (285.9, D64.9) Status: Active Screen for colon cancer (V76.51, Z12.11) Status: Active 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, E11.21) Status: Active Encounter for diabetic foot exam (250.00, E11.9) Status: Active Need for hepatitis C screening test (V73.89, Z11.59) Status: Active Other custodial (current) drug therapy (V58.69, Z79.899) Status: Active Chronic GERD (530.81, K21.9) Status: Active Diabetic peripheral neuropathy (250.60, E11.42) Status: Active Mixed hyperlipidemia (272.2, E78.2) Status: Active Contusion of right knee, initial encounter (924.11, S80.01XA) Status: Active Knee abrasion, right, initial encounter (916.0, S80.211A) Status: Active Benign essential hypertension (401.1, I10) Status: Active Medications Name Dates Details Aspirin 81 MG Oral Tablet Delayed Release Active Gabapentin 400 MG Oral Capsule TAKE 3 CAPSULE 3 TIMES DAILY * Refills: 0 Active glipiZIDE 10 MG Oral Tablet TAKE 1 TABLET DAILY. * Refills: 0 Active hydroCHLOROthiazide 25 MG Oral Tablet TAKE 1 TABLET DAILY. * Refills: 0 Active metFORMIN HCl - 1000 MG Oral Tablet TAKE ONE TABLET BY MOUTH TWICE DAILY WITH MEALS * Quantity: 210 Refills: 0 Active Omeprazole 20 MG Oral Capsule Delayed Release TAKE 1 CAPSULE DAILY * Refills: 0 Active Simvastatin 40 MG Oral Tablet TAKE 1 TABLET DAILY. * Refills: 0 Active 30 Tablet Bottle Terazosin HCl - 5 MG Oral Capsule TAKE 1 CAPSULE AT BEDTIME NIGHTLY. * Refills: 0 Active Shingrix 50 MCG Intramuscular Suspension Reconstituted IM: 0.5 mL 2-dose series at 0 and 2 to 6 months * Quantity: 1 Refills: 1 JONATAN KIMBALL M.D. * Start : 15-Sep-2017 Active Januvia 50 MG Oral Tablet TAKE 1 TABLET DAILY. * Quantity: 90 Refills: 1 JIGAR Boland JONATAN * Start : 07-Jul-2018 Active Meloxicam 7.5 MG Oral Tablet TAKE 1 TO 2 TABLETS DAILY WITH FOOD NEEDED FOR PAIN * Quantity: 20 Refills: 0 CRUZ M.D., ALEX * Start : 14-Dec-2018 End : 24-Dec-2018 Active Mupirocin 2 % External Ointment APPLY THIN FILM TO AFFECTED AREA 3 TIMES DAILY. * Quantity: 1 Refills: 0 CRUZ M.D., ALEX * Start : 15-Dec-2018 Active 22 GM Tube Allergies and Adverse Reactions Name Dates Details Iodides (Allergy) Status: Active Past Medical History Name Dates Details History of Stroke, lacunar (434.91, I63.81) Status: Resolved Procedures Procedure Dates Details History of Lumbar vertebral fusion Completed History of Anterior cruciate ligament repair Completed History of Knee chondroplasty Completed History of Eye surgery Completed History of Neck surgery Completed Immunization Name Dates Details PCV 13, pneumococcal conjugate vaccine, 13 valent on: May-2013 Pneumococcal polysaccharide vaccine, 23 valent on: May-2014 Tdap on: 23-Jan-2015 Fluzone Quadrivalent 0.5 ML Intramuscular Suspension on: 07-Feb-2017 Shingrix 50 MCG Intramuscular Suspension Reconstituted on: 07-Oct-2017 Family History Name Dates Details Family history of hyperlipidemia (V18.19, Z83.438) Comments: Family History Status: Active Family history of hypertension (V17.49, Z82.49) Comments: Family History Status: Active Family history of cerebrovascular accident (CVA) (V17.1, Z82.3) Comments: Family History Status: Active Name Dates Details Family history of malignant neoplasm of urinary bladder (V16.52, Z80.52) Status: Active Social History Name Dates Details - Status: Name Dates Details Never smoker Vital Signs Date Test Result Details :06 BP Systolic 148 mm[Hg] Status: Comments: Location: LUE; Position: Sitting BP Diastolic 67 mm[Hg] Status: Comments: Location: LUE; Position: Sitting Heart Rate 70 /min Status: :05 BP Systolic 150 mm[Hg] Status: Comments: Location: LUE; Position: Sitting BP Diastolic 76 mm[Hg] Status: Comments: Location: LUE; Position: Sitting Heart Rate 69 /min Status: Height 68 in Status: Weight 164.1875 lb Status: Body Mass Index Calculated 24.96 kg/m2 Status: Body Surface Area Calculated 1.88 m2 Status: Temperature 97.9 f Status: Comments: Method: Temporal Respiration Rate 16 /min Status: Results Date Description Value Details Results not documented Plan of Care Name Dates Details Planned Observations Planned Goals not documented Interventions Provided Medication Changes* Mupirocin 2 % External Ointment - Start Instructions Name Dates Details Instructions not documented Encounters Appointment; JONATAN KIMBALL M.D. Encounter Diagnosis: Problem not documented On: 15-Sep-2017 10:30 Appointment; JONATAN KIMBALL M.D. Encounter Diagnosis: Problem not documented On: 19-Oct-2017 10:30 Appointment; JONATAN KIMBALL M.D. Encounter Diagnosis: Problem not documented On: 08-Jun-2018 11:30 Appointment; JONATAN KIMBALL M.D. Encounter Diagnosis: Problem not documented On: 29-Jun-2018 9:30 Appointment; JONATAN KIMBALL M.D. Encounter Diagnosis: Problem not documented On: 26-Sep-2018 10:00 Appointment; JONATAN KIMBALL M.D. Encounter Diagnosis: Problem not documented On: 26-Sep-2018 10:00 Appointment; ALEX CRUZ M.D. Encounter Diagnosis: Problem not documented On: 14-Dec-2018 9:00
--- OUTSIDE RECORDS SUMMARY | 2019-01-08 11:46 | XMS REPORT | Summary of Care ---
Author Author [facility] [place] Organization [facility] [place] Address Unknown Phone Unavailable Encounter HQ Encntr_alias(FIN) [id number] Date(s): 09/26/17 - 09/26/17 [facility] [place] [address] [place] [phone] Discharge Disposition: Home or Self Care Attending Physician: Lavinia White MD Vital Signs No [...]
--- OUTSIDE RECORDS SUMMARY | 2019-01-08 11:46 | XMS REPORT | Summary of Care ---
Author Author [facility] Organization [facility] Address Unknown Phone Unavailable Care Team Providers Care Ehs Manager Name Role Phone Lavinia White PCP Encounter HQ Encntr_janak(FIN) [phone] Date(s): 09/04/18 - 09/04/18 [facility] [address] [place] [address]- Discharge Disposition: Home or Self Care Attending Physician: Christiano Boswell MD Referring Physician: Lavinia White MD Vital Signs Most recent to 1 oldest [Reference Range]: Height 172.72 cm (09/04/18 9:31 AM) Weight 74.091 kg (09/04/18 9:31 AM) Body Mass Index 24.84 m2 (09/04/18 9:31 AM) Problem List Condition Effective Dates Status Health Status Informant Diabetes(Confirmed) Resolved Hypertension(Confirm Resolved ed) Renal Resolved stone(Confirmed) Allergies, Adverse Reactions, Alerts No Known Medication Allergies Medications No Known Medications Results No data available for this section [...]
--- OUTSIDE RECORDS SUMMARY | 2019-01-08 11:46 | XMS REPORT | Summary of Care ---
Author Author [facility] Spine Clinic [facility] Organization [facility] Spine Clinic [facility] Address Unknown Phone Unavailable Encounter HQ Encntr_alias(FIN) [id number] Date(s): 12/20/17 - 12/20/17 [facility] Spine [facility] [address] [phone] Attending Physician: Jasmyne Mercedes MD Referring Physician: Lavinia White MD Vital [...]
--- OUTSIDE RECORDS SUMMARY | 2019-01-08 11:46 | XMS REPORT | Summary of Care ---
Author Author [facility] Organization [facility] Address Unknown Phone Unavailable Encounter HQ Encntr_aliarabella(FIN) [id number] Date(s): 07/31/18 - 07/31/18 [facility] [address] [place] [address]- Discharge Disposition: Home or Self Care Attending Physician: Christiano Boswell MD Admitting Physician: Christiano Boswell MD Vital Signs No data available for this section Problem List Condition Effective Dates Status Health Status Informant Diabetes(Confirmed) Resolved Hypertension(Confirm Resolved ed) Renal Resolved stone(Confirmed) Allergies, Adverse Reactions, Alerts Substance Reaction Severity [...] Reg Smoking Cessation Counseling No entered on: 07/31/18 Assessment and Plan No data available for this section
--- NOTE | 2019-01-08 13:00 | Diagnostic Imaging Report ---
RIGHT KNEE - 3 Image(s) HISTORY: Fall COMPARISON: None available. FINDINGS: Bones: Diffusely decreased mineralization of the osseous structures limits bone detail. No acute displaced fracture. No aggressive osseous lesion. Metallic distal femoral and proximal tibial screws compatible with ACL reconstruction. Joints: Mild medial and patellofemoral compartment degenerative changes. Soft tissues: Mild scattered atherosclerotic vascular calcifications. IMPRESSION: 1. No acute radiographic abnormality. 2. Status post ACL reconstruction. 3. Mild medial and patellofemoral compartment osteoarthrosis. 4. Diffuse osseous demineralization. Signed by: Dr. Gentry Pickard D.O., M.M.M. on 01/08/2019 12:56 PM
--- NOTE | 2019-01-08 13:03 | Diagnostic Imaging Report ---
Lumbar Spine Radiographs: 3 views HISTORY: Fall one month ago, pain COMPARISON: None available. DISCUSSION: The osseous structures are partially obscured by stool and bowel gas. Transitional lumbosacral anatomy with partial embolization of S1. Mild anterior wedge compression deformity of L1. No listhesis. Disc Spaces: The disc spaces are well maintained. Facets: Mild multilevel facet arthrosis, greatest at L4-5 and L5-S1. Other: Diffuse scattered atherosclerotic vascular calcifications. IMPRESSION: Mild age-indeterminate anterior wedge compression deformity of L1, correlate for focal point tenderness. Signed by: Dr. Gentry Pickard D.O., M.M.M. on 01/08/2019 1:00 PM
--- NOTE | 2019-01-08 13:20 | Diagnostic Imaging Report ---
CT of the pelvis was obtained WITHOUT contrast. TECHNIQUE: Standard departmental protocols were used. Sagittal and coronal reformations were obtained. HISTORY: Fall COMPARISON: None. FINDINGS: Bones: No acute displaced fracture. No acute displaced fracture. Joints: Mild bilateral degenerative changes of the hips. Soft tissues: Diffuse scattered atherosclerotic vascular calcifications. IMPRESSION: No acute displaced fracture. Signed by: Dr. Gentry Pickard D.O., M.M.M. on 01/08/2019 1:17 PM
[2019-01-08 13:43] VITALS: BP 157/88
[2019-01-08] MEDS ORDERED: IBUPROFEN400 MG PO (13:51)
[2019-01-08] MEDS ORDERED: SIMVASTATIN80 MG PO (13:51)
[2019-01-08] MEDS ORDERED: LOSARTAN POTASS25 MG (13:51)
[2019-01-08] MEDS ORDERED: GLIPIZIDE10 MG (13:51)
[2019-01-08] MEDS ORDERED: LISINOPRIL2.5 MG PO (13:51)
[2019-01-08] MEDS ORDERED: HYDROCHLOROTHIA25 MG (13:51)
[2019-01-08] MEDS ORDERED: TERAZOSIN HCL5 MG PO (13:51)
[2019-01-08] MEDS ORDERED: ASPIRIN EC81 MG PO (13:51)
[2019-01-08] MEDS ORDERED: GABAPENTIN400 MG PO (13:51)
[2019-01-08] MEDS ORDERED: HYDROCODON-ACE1 EAC9 (13:51)
[2019-01-08] MEDS ORDERED: PANTOPRAZOLE SO20 MG (13:51)
[2019-01-08] MEDS ORDERED: METFORMIN HCL850 MG PO (13:51)
== END 2019-01-08 13:38 | disposition home or self-care (01) ==
LOC: FSED 11:43
DX: S80.01XA Contusion of right knee, initial encounter (principal); M25.551 Pain in right hip; M54.5 Low back pain; W01.0XXA Fall on same level from slipping, tripping and stumbling without subsequent striking against object, initial encounter; Y92.488 Other paved roadways as the place of occurrence of the external cause
CPT/HCPCS: 72100; 72192; 99283

== ENCOUNTER 2019-11-24 23:36 | Emergency (ER) | payer MEDICARE, OTHER ==
[~2019-11-24] VITALS: Ht 172.7 cm; Wt 72.6 kg
[~2019-11-24 23:36] MED LIST: ASPIRIN EC81 MG PO; GABAPENTIN400 MG PO; GLIPIZIDE10 MG; HYDROCHLOROTHIA25 MG; HYDROCODON-ACE1 EAC9; IBUPROFEN400 MG PO; LISINOPRIL2.5 MG PO; LOSARTAN POTASS25 MG; METFORMIN HCL850 MG PO; PANTOPRAZOLE SO20 MG; SIMVASTATIN80 MG PO; TERAZOSIN HCL5 MG PO
[2019-11-24] MEDS ORDERED: SODIUM CHLORIDE 0.9% 1000ML 1,000 ML IV ONE (23:45)
[2019-11-24] MEDS ORDERED: INSULIN REGULAR, HUMAN 100 UNIT/1 ML 3ML VIAL SQ ONE (23:45)
--- NOTE | 2019-11-24 23:59 | Emergency Department Note ---
History of Present Illnes History of Present Illness Chief Complaint: Diabetic Crisis History of Present Illness This is a 69 year old male PRESENTS TO THE ER C/O ELEVATED BLOOD GLUCOSE; REPORTS GLUCOSE AT HOME WAS 430; PT REPORTS EATING NOODLES, HAM SANDWICH, AND ICE CREAM FOR DINNER; BG IN TRIAGE 393; V/S/S; NAD NOTED AT THIS TIME . Arrival Mode: Car Onset (how long ago): hour(s) (4) Location: NONE Quality: ELEVATED BLOOD SUGAR Radiation: Reports non-radiation Severity: moderate Onset quality: gradual Duration (how long): hour(s) (4) Timing of current episode: constant Progression: unchanged Chronicity: recurrent Context: Denies recent illness, Denies recent surgery Relieving factors: none Exacerbating factors: other (EATING) Associated symptoms: Reports denies other symptoms Past Medical/Family History Physician Review I have reviewed the patient's past medical and family history. Any updates have been documented here. Past Medical History Recent Fever: No Clinical Suspicion of Infectio: No New/Unexplained Change in Ment: No Past Medical History: Hypertension, Diabetes, GERD, Hyperlipedemia, Chronic Back Pain Past Surgical History: Back Surgery Other Surgery: Lithotripsy Eye surgery Neck surgery ACL repair Social History Smoking Cessation: Never Smoker Alcohol Use: None Any Illegal Drug Use: No Physically hurt or threatened: No Family History Family history of heart diseas: No Other family history HTN,DM Review of Systems Review of Systems Constitutional: Reports no symptoms EENTM: Reports no symptoms Cardiovascular: Reports no symptoms Respiratory: Reports no symptoms Gastrointestinal: Reports no symptoms Genitourinary: Reports no symptoms Musculoskeletal: Reports no symptoms Integumentary: Reports no symptoms Neurological: Reports no symptoms Psychological: Reports no symptoms Endocrine: Reports no symptoms Hematological/Lymphatic: Reports no symptoms Physical Exam Related Data Allergies: Uncoded Allergies: iv contrast (Allergy, Intermediate, swelling in throat, 01/08/19) Triage Vital Signs Vital Signs Date Time Temp Pulse Resp B/P (MAP) Pulse Ox O2 Delivery O2 Flow Rate FiO2 11/24/19 23:40 97.5 79 18 127/63 100 Room Air Vital signs reviewed: Yes Physical Exam CONSTITUTIONAL Constitutional: Present well-developed, Present well-nourished HENT HENT: Present normocephalic, Present atraumatic, Present oropharynx clear/moist, Present nose normal HENT L/R: Present left ext ear normal, Present right ext ear normal EYES Eyes: Reports PERRL, Reports conjunctivae normal NECK Neck: Present ROM normal PULMONARY Pulmonary: Present effort normal, Present breath sounds normal CARDIOVASCULAR Cardiovascular: Present regular rhythm, Present heart sounds normal, Present capillary refill normal, Present normal rate GASTROINTESTINAL Abdominal: Present soft, Present nontender, Present bowel sounds normal GENITOURINARY Genitourinary: Present exam deferred SKIN Skin: Present warm, Present dry MUSCULOSKELETAL Musculoskeletal: Present ROM normal NEUROLOGICAL Neurological: Present alert, Present oriented x 3, Present no gross motor or sensory deficits PSYCHOLOGICAL Psychological: Present mood/affect normal, Present judgement normal Results Laboratory Laboratory Laboratory Tests Test 11/24/19 23:46 White Blood Count 9.00 x10e3/uL (4.8-10.8) Red Blood Count 4.51 x10e6/uL (4.3-5.7) Hemoglobin 12.9 g/dL (14.0-18.0) Hematocrit 39.2 % (38.2-49.6) Mean Corpuscular Volume 86.9 fL (81-99) Mean Corpuscular Hemoglobin 28.6 pg (28-32) Mean Corpuscular Hemoglobin Concent 32.9 g/dL (31-35) Red Cell Distribution Width 13.1 % (11.7-14.4) Platelet Count 329 x10e3/uL (140-360) Neutrophils (%) (Auto) 65.8 % (38.7-80.0) Lymphocytes (%) (Auto) 24.6 % (18.0-39.1) Monocytes (%) (Auto) 8.1 % (4.4-11.3) Eosinophils (%) (Auto) 0.9 % (0.0-6.0) Basophils (%) (Auto) 0.4 % (0.0-1.0) Neutrophils # (Auto) 5.9 (2.1-6.9) Lymphocytes # (Auto) 2.2 (1.0-3.2) Monocytes # (Auto) 0.7 (0.2-0.8) Eosinophils # (Auto) 0.1 (0.0-0.4) Basophils # (Auto) 0.0 (0.0-0.1) Absolute Immature Granulocyte (auto 0.02 x10e3/uL (0-0.1) Sodium Level 137 mmol/L (136-145) Potassium Level 4.7 mmol/L (3.5-5.1) Chloride Level 101 mmol/L (98-107) Carbon Dioxide Level 27 mmol/L (22-29) Anion Gap 13.7 mmol/L (8-16) Blood Urea Nitrogen 27 mg/dL (7-26) Creatinine 1.27 mg/dL (0.72-1.25) Estimat Glomerular Filtration Rate 56 ML/MIN (60-) BUN/Creatinine Ratio 21 (6-25) Glucose Level 400 mg/dL (74-118) Calcium Level 10.4 mg/dL (8.4-10.2) Laboratory Tests Test 11/24/19 23:46 Lab results reviewed: Yes Assessment & Plan Medical Decision Making MDM PT WITH ELEVATED BLOOD SUGAR AFTER EATING NOODLES AND THEN HAVING ICE CREAM, FSBS 393 IN TRIAGE CBC, BMP ORDERED TO EVAL FOR DKA REGULAR INSULIN 8 UNITS SQ ORDERED NS 1 LITER IV BOLUS ORDERED Reassessment Reassessment time: 02:14 Reassessment FSBS 236 Assessment & Plan Final Impression: (1) Hyperglycemia due to diabetes mellitus Depart Disposition: HOME, SELF-CARE Last Vital Signs Date Time Temp Pulse Resp B/P (MAP) Pulse Ox O2 Delivery O2 Flow Rate FiO2 11/24/19 23:40 97.5 79 18 127/63 100 Room Air Home Meds Reported Medications Losartan Potassium (LOSARTAN POTASSIUM) 25 Mg Tablet, DAILY 01/08/19 Terazosin Hcl (TERAZOSIN HCL) 5 Mg Capsule, 5 MG PO HS, #30 CAP 01/08/19 Simvastatin (SIMVASTATIN) 80 Mg Tablet, 80 MG PO HS, #30 TAB 01/08/19 Pantoprazole Sodium (PANTOPRAZOLE SODIUM) 20 Mg Tablet.dr, 40 BID 01/08/19 Metformin Hcl (METFORMIN HCL) 850 Mg Tablet, 1000 MG PO BID, #30 TAB 01/08/19 Lisinopril (LISINOPRIL) 2.5 Mg Tablet, 5 MG PO DAILY, #30 TAB 01/08/19 Ibuprofen (IBUPROFEN) 400 Mg Tablet, 800 MG PO TID, TAB 01/08/19 Hydrochlorothiazide (HYDROCHLOROTHIAZIDE) 25 Mg Tablet, 25 MG DAILY, #30 TAB 01/08/19 Glipizide (GLIPIZIDE) 10 Mg Tablet, DAILY 01/08/19 Gabapentin (GABAPENTIN) 400 Mg Capsule, 400 MG PO DAILY, #30 CAP 01/08/19 Aspirin (ASPIRIN EC) 81 Mg Tablet.dr, 81 MG PO DAILY, #30 TAB 01/08/19 Hydrocodone Bit/Acetaminophen (HYDROCODON-ACETAMINOPHN 10325) 1 Each Tablet, Q6H 01/08/19 Medications in the ED Insulin Human Regular 8 unit ONCE ONCE SQ ; Start 11/24/19 at 23:45; Stop 11/24/19 at 23:51; Status DC Sodium Chloride 1,000 ml @ 999 mls/hr Q1H1M ONCE IV ; Start 11/24/19 at 23:45; Stop 11/25/19 at 00:45 CLAIRE MENDOZA MD Nov 24, 2019 23:59
[2019-11-25 00:01] LABS: BASOPHILS % 0.4 % (0.0-1.0); EOSINOPHILS # (AUTO) 0.1 (0.0-0.4); EOSINOPHILS % 0.9 % (0.0-6.0); HEMATOCRIT 39.2 % (38.2-49.6); HEMOGLOBIN 12.9 g/dL (14.0-18.0); LYMPHOCYTES # (AUTO) 2.2 (1.0-3.2); LYMPHOCYTES % 24.6 % (18.0-39.1); MEAN CORPUSCULAR HEMOGLOBIN 28.6 pg (28-32); MEAN CORPUSCULAR HGB CONC 32.9 g/dL (31-35); MEAN CORPUSCULAR VOLUME 86.9 fL (81-99); MONOCYTES # (AUTO) 0.7 (0.2-0.8); MONOCYTES % 8.1 % (4.4-11.3); NEUTROPHILS # (AUTO) 5.9 (2.1-6.9); NEUTROPHILS % 65.8 % (38.7-80.0); PLATELET COUNT 329 x10e3/uL (140-360); RED BLOOD COUNT 4.51 x10e6/uL (4.3-5.7); RED CELL DISTRIBUTION WIDTH 13.1 % (11.7-14.4)
[2019-11-25 00:16] LABS: ANION GAP 13.7 mmol/L (8-16); CALCIUM 10.4 mg/dL (8.4-10.2); CREATININE, SERUM 1.27 mg/dL (0.72-1.25); POTASSIUM 4.7 mmol/L (3.5-5.1)
== END 2019-11-25 02:46 | disposition home or self-care (01) ==
LOC: ER 23:45
DX: E11.65 Type 2 diabetes mellitus with hyperglycemia (principal); I10 Essential (primary) hypertension; K21.9 Gastro-esophageal reflux disease without esophagitis; E78.5 Hyperlipidemia, unspecified; M54.9 Dorsalgia, unspecified; G89.29 Other chronic pain
CPT/HCPCS: 36415; 80048; 82948; 85025; 99283